=== PATIENT | male | born 1970 | race Caucasian/White ===

== ENCOUNTER 2024-04-27 13:31 | Inpatient (IN) | payer OTHER ==
[2024-04-27 14:43] VITALS: BMI 25.7
[2024-04-27] MEDS ORDERED: BISMUTH SUBSALICYLATE 524 MG/30 ML PO PRN (17:45)
[2024-04-27] MEDS ORDERED: MAGNESIUM HYDROX 2400MG/30ML ORAL SUSPENSION 30 ML CUP PO PRN (17:45)
[2024-04-27] MEDS ORDERED: guaiFENesin 600 MG TABLET.ER (FP) PO PRN (17:45)
[2024-04-27] MEDS ORDERED: ACETAMINOPHEN 325 MG TABLET (FP) PO PRN (17:45)
[2024-04-27] MEDS ORDERED: BENZONATATE 200 MG CAPSULE PO PRN (17:45)
[2024-04-27] MEDS ORDERED: MAG HYDROX/AL HYDROX/SIMETH 30 ML UNIT-DOSE CUP PO PRN (17:45)
[2024-04-27] MEDS ORDERED: NALOXONE (NARCAN) HCL 4 MG/0.1 ML SPRAY NS PRN (17:45)
[2024-04-27] MEDS ORDERED: POLYETHYLENE GLYCOL (HEALTHYLAX) 3350 17 GM PACKET PO PRN (17:45)
[2024-04-27] MEDS ORDERED: ONDANSETRON *ODT* 4 MG TABLET SL PRN (17:45)
[2024-04-27] MEDS ORDERED: DICYCLOMINE HCL 10 MG CAPSULE PO PRN (17:45)
[2024-04-27] MEDS ORDERED: LOPERAMIDE HCL 2 MG CAPSULE PO PRN (17:45)
[2024-04-27] MEDS ORDERED: BENZOCAINE/MENTHOL (CHLORASEPTIC ) LOZENGE MM PRN (17:45)
[2024-04-27] MEDS ORDERED: NALOXONE HCL 0.4 MG/ML VIAL IM PRN (17:45)
[2024-04-27] MEDS: clonazePAM 0.25 MG ODT TABLETS SL ONE (19:18)
[2024-04-27] MEDS: MELATONIN 5 MG TABLETS PO SCH (21:46)
[2024-04-27] MEDS: THIAMINE 100 MG TABLET PO SCH (21:46)
[2024-04-28] MEDS: PRENATAL VITAMINS W/ FOLIC ACID TABLET (FP) PO SCH (09:51)
[2024-04-28] MEDS: METHOCARBAMOL 500 MG TABLET PO PRN (10:17)
[2024-04-28] MEDS: hydrOXYzine PAMOATE 25 MG CAPSULE (FP) PO PRN (10:17)
[2024-04-28 11:47] LABS: HEMATOCRIT 31.9 % (35.4-49); HEMOGLOBIN 11.2 GM/dL (11.7-16.9); MCH 30.7 pg (25.7-33.7); MEAN CELL VOLUME 87.6 fl (80-96); MEAN PLT VOLUME 9.5 fl (7.5-11.1); PLATELET COUNT 200 10^3/uL (134-434); RBC 3.64 M/mm3 (4.00-5.60); RDW 13.4 % (11.9-15.9); WHITE BLOOD COUNT 4.6 K/mm3 (4.0-10.0)
[2024-04-28] MEDS: BUPRENORPHINE/NALOXONE 4 MG/1 MG FILM PACKET SL SCH (17:16)
[2024-04-28] MEDS: clonazePAM 0.25 MG ODT TABLETS SL PRN (17:43)
[2024-04-29] MEDS: PARoxetine HCL 20 MG TABLET PO SCH (10:31)
[2024-05-01] MEDS: PANTOPRAZOLE 20 MG TABLET PO PRN (10:18)
[2024-05-01] MEDS ORDERED: clonazePAM 0.5 MG ODT TABLETS SL PRN (22:00)
[2024-05-01] MEDS: clonazePAM 0.25 MG ODT TABLETS SL PRN (22:04)
[2024-05-03] MEDS: SUVOREXANT 10 MG TABLET PO PRN (21:38)
[2024-05-04] MEDS: GABAPENTIN 100 MG CAPSULE PO SCH (13:37)
[2024-05-04] MEDS: hydrOXYzine PAMOATE 50 MG CAPSULE (FP) PO PRN (18:08)
[2024-05-04] MEDS: clonazePAM 0.5 MG ODT TABLETS SL SCH (21:15)
[2024-05-08] MEDS: GABAPENTIN 100 MG CAPSULE PO SCH (14:08)
[2024-05-08] MEDS: clonazePAM 0.25 MG ODT TABLETS SL SCH (20:15)
[2024-05-08] MEDS: clonazePAM 0.5 MG ODT TABLETS SL SCH (20:20)
[2024-05-09] MEDS: SUVOREXANT 10 MG TABLET PO ONE (21:57)
[2024-05-10] MEDS: GABAPENTIN 400 MG CAPSULE PO SCH (14:10)
[2024-05-10] MEDS: clonazePAM 0.5 MG ODT TABLETS SL SCH (19:14)
[2024-05-10] MEDS: SUVOREXANT 10 MG TABLET PO PRN (21:55)
[2024-05-11] MEDS: clonazePAM 0.25 MG ODT TABLETS SL SCH (07:32)
[2024-05-13] MEDS: PANTOPRAZOLE 20 MG TABLET PO PRN (09:49)
[2024-05-13] MEDS: SUVOREXANT 15 MG TABLET PO PRN (21:15)
[2024-05-17] MEDS ORDERED: MELATONIN 5 MG TABLETS PO PRN (09:56)
[2024-05-17] MEDS: IBUPROFEN 600 MG TABLET (FP) PO PRN (18:42)
[2024-05-17] MEDS: clonazePAM 0.5 MG ODT TABLETS SL SCH (20:16)
[2024-05-17] MEDS: SUVOREXANT 5 MG TABLET PO ONE (22:37)
[2024-05-18] MEDS: clonazePAM 0.25 MG ODT TABLETS SL SCH (07:59)
[2024-05-18] MEDS ORDERED: clonazePAM 0.25 MG ODT TABLETS SL SCH (10:00)
[2024-05-18] MEDS: SUVOREXANT 15 MG TABLET PO PRN (21:15)
[2024-05-19] MEDS: IBUPROFEN 400 MG TABLET (FP) PO PRN (10:01)
[2024-05-20] MEDS: SUVOREXANT 10 MG TABLET PO PRN (21:18)
[2024-05-20] MEDS: SUVOREXANT 20 MG TABLET PO SCH (21:56)
[2024-05-21] MEDS: clonazePAM 0.25 MG ODT TABLETS SL SCH (06:39)
[2024-05-22] MEDS: SUVOREXANT 10 MG TABLET PO PRN (21:20)
[2024-05-23 06:46] VITALS: RESP 18
[2024-05-24] MEDS: SUVOREXANT 20 MG TABLET PO PRN (21:22)
[2024-05-25] MEDS: clonazePAM 0.5 MG ODT TABLETS SL SCH (19:34)
[2024-05-26 06:51] VITALS: BP 140/80; PULSE 82; TEMP 97.2
== END 2024-05-26 10:15 | disposition home or self-care (01) | DRG 772 ==
LOC: YASAS 13:31 → Y3NR 17:40 → Y5N 04-28 12:56
PROVIDERS: ADMIT Allergy & Immunology; ATTEND Psychiatry & Neurology Pain Medicine
PROC: HZ42ZZZ Group Counseling for Substance Abuse Treatment, Cognitive-Behavioral (ICD-10-PCS; principal; 2024-04-27)
DX: F13.20 Sedative, hypnotic or anxiolytic dependence, uncomplicated (principal); F11.20 Opioid dependence, uncomplicated; F19.280 Other psychoactive substance dependence with psychoactive substance-induced anxiety disorder; F19.282 Other psychoactive substance dependence with psychoactive substance-induced sleep disorder; F19.24 Other psychoactive substance dependence with psychoactive substance-induced mood disorder; F40.10 Social phobia, unspecified; F43.10 Post-traumatic stress disorder, unspecified; I10 Essential (primary) hypertension; K21.9 Gastro-esophageal reflux disease without esophagitis; M25.561 Pain in right knee; M25.562 Pain in left knee; M54.50 Low back pain, unspecified; G89.29 Other chronic pain
CPT/HCPCS: 36415; 71045-TC-FY; 80305; 85027; 86780; 87811; 93005; 93010